=== PATIENT | female | born 1935 | race Caucasian/White ===

== ENCOUNTER 2017-03-05 21:47 | Inpatient (IN) | payer OTHER ==
[2017-03-05] MEDS ORDERED: ONDANSETRON 4 MG/2 ML VIAL IVP ONE (21:55)
[2017-03-05] MEDS ORDERED: NS 1,000 ML IV ONE (21:55)
--- NOTE | 2017-03-05 21:57 | EDPHY ---
H & P Time Seen by Provider: 03/05/17 21:56 HPI/ROS: HPI: This is an 81-year-old female who presents with Chief Complaint: Vomiting, nausea, pain Location: GI Quality: Nausea vomiting Duration: Since 3:00 p.m. (7 hr) Signs and Symptoms: no fever, + nausea, + vomiting, no hematemesis, no blood in stool, + abdominal bloating, no diarrhea, no back pain, no urinary symptoms, no vaginal bleeding/discharge, + indigestion, no chest pain, no shortness of breath Timing: Sudden, intermittent episodes Severity: [id number] Context: Patient reports that she woke up this morning just not feeling right with a little bit of confusion that cleared after 1 or 2 hr, she went to a green party this afternoon and did not eat anything. Dinner around 3:00 p.m. she started to feel nauseous, hiccups, and vomited over the course of 7 hr approximately 3 times. She feels like she has an upset stomach and indigestion. She did eat [place] food last night but her 8 as well and he has no symptoms. Status post hysterectomy/appendectomy. Denies any recent antibiotic use. Denies fever/diarrhea/chest pain/shortness of breath/ urinary symptoms. , into daughters at bedside. Modifying Factors: None Comment: ROS: see HPI Constitutional: No fever, no chills, no weight loss Eyes: No blurred vision Respiratory: No shortness of breath, no cough Cardiovascular: No chest pain, no palpitations Gastrointestinal: + nausea, + vomiting, no diarrhea, no hematemesis, no blood in stool Genitourinary: No dysuria, no blood in urine Extremities: No myalgias, no edema Neurologic: No weakness, no numbness Skin: No rashes, no petechiae Hematologic: No bruising, no bleeding MEDICAL/SURGICAL/SOCIAL HISTORY: Medical history: Generally healthy. Does not take any regular medications. Surgical history: Hysterectomy, appendectomy Social history: . CONSTITUTIONAL: Extremely pleasant and well-appearing elderly white female, awake and alert, no obvious distress HEENT: Atraumatic and normocephalic, PERRL, EOMI. Tympanic membranes clear. Oropharynx clear, no exudate and moist pink mucosa. Airway patent. No lymphadenopathy. No meningismus. Cardiovascular: Normal S1/S2, regular rate, regular rhythm, without murmur rub or gallop. PULMONARY/CHEST: Symmetrical and nontender. Clear to auscultation bilaterally. Good air movement. No accessory muscle usage. ABDOMEN: Soft, nondistended, moderate epigastric and periumbilical tenderness no rebound, no guarding, no peritoneal signs, no masses or organomegaly. No CVAT. Hypoactive bowel sounds heard x4 quadrants. EXTREMITIES: 2/2 pulses, strength 5/5, no deformities, no clubbing, no cyanosis or edema. NEUROLOGICAL: no focal neuro deficits. GCS 15. SKIN: Warm and dry, no erythema. no rash. Good capillary refill. Source: Patient Exam Limitations: No limitations Constitutional: Initial Vital Signs Temperature (C) 36.3 C 03/05/17 21:54 Heart Rate 59 L 03/05/17 21:54 Respiratory Rate 20 03/05/17 21:54 Blood Pressure 186/81 H 03/05/17 21:54 O2 Sat (%) 98 03/05/17 21:54 O2 Delivery Mode Room Air Allergies/Adverse Reactions: No Known Allergies Allergy (Unverified 03/05/17 21:53) Medical Decision Making - Diagnostics EKG Interpretation: 12 lead EKG: Indication: Abdominal pain Rhythm: Normal sinus rhythm, rate 60 beats per minute [place]: Normal Intervals: Normal QRS: Normal ST segments: Nonspecific changes T segment: flipped V1 V2 INTERPRETATION: No acute ischemia, QT prolongation The 12 lead EKG was interpreted by myself with attending. Imaging Results: Imaging Impressions Abdomen CT 03/05/17 21:56 Impression: 1. Partial small bowel obstruction involving the jejunum with apparent transition in the central low pelvis with stranding and inflammatory change in the mesentery. 2. Other chronic findings as above. Results called and discussed with Teresa Ovalle PA-C at 03/05/2017 23:36. Chest X-Ray 03/05/17 22:08 Impression: No evidence of acute cardiopulmonary abnormality. ED Course/Re-evaluation: EKG, labs, CXR, CT abdomen and pelvis scan, IV fluids, urinalysis, IV medications ordered Given 1 L normal saline, IV morphine 1 mg and IV Zofran upon arrival Vital signs reviewed and afebrile and no systemic signs. Chest x-ray my read shows no signs of opacity, effusion, pneumothorax, widened mediastinum, hiatal hernia, perforated bowel. 2335: Called by Radiology who advised that CT abdomen and pelvis shows partial small-bowel obstruction. NG tube placed for bowel decompression. Reassessed patient who reports that her nausea has subsided. She has a history of constipation intermittently at times but her last bowel movement was today at lunchtime and yesterday evening. 2345: ED decision to consult for admission. Spoke with hospitalist Dr. Espinoza who kindly agrees to admit patient. Spoke with General surgery, Nidia, who kindly agrees to consult on patient. This patient was seen under the supervision of my secondary supervising physician. I evaluated care for this patient independently. Discussed this patient with Dr. Mar who did not see the patient. Patient's presentation, labs/imaging, treatment and plan of care were discussed with secondary supervising physician. Differential Diagnosis: Abdominal pain including but not limited to appendicitis, cholecystitis, gastritis and urinary tract infection. - Data Points Laboratory Results: Laboratory Results 03/05/17 22:00 03/05/17 22:00 03/05/17 03/05/17 03/05/17 22:35 22:00 22:00 WBC RBC Hgb Hct MCV MCH MCHC RDW Plt Count MPV Neut % (Auto) Lymph % (Auto) [place] % (Auto) Eos % (Auto) Baso % (Auto) Nucleat RBC Rel Count Absolute Neuts (auto) Absolute Lymphs (auto) Absolute Monos (auto) Absolute Eos (auto) Absolute Basos (auto) Absolute Nucleated RBC Immature Gran % Immature Gran # PT 13.4 SEC SEC (12.0-15.0) INR 1.00 (0.83-1.16) APTT 26.9 SEC SEC (23.0-38.0) VBG Lactic Acid 1.4 mmol/L mmol/L (0.7-2.1) Sodium 135 mEq/L mEq/L (134-144) Potassium 4.1 mEq/L mEq/L (3.5-5.2) Chloride 97 mEq/L mEq/L (97-110) Carbon Dioxide 21 mEq/l L mEq/l (22-31) Anion Gap 17 mEq/L H mEq/L (8-16) BUN 16 mg/dL mg/dL (7-23) Creatinine 0.9 mg/dL mg/dL (0.6-1.0) Estimated GFR 60 Glucose 128 mg/dL H mg/dL (70-100) Calcium 10.5 mg/dL H mg/dL (8.5-10.4) Total Bilirubin 0.8 mg/dL mg/dL (0.1-1.4) Conjugated Bilirubin 0.3 mg/dL mg/dL (0.0-0.5) Unconjugated Bilirubin 0.5 mg/dL mg/dL (0.0-1.1) AST 23 IU/L IU/L (14-46) ALT 33 IU/L IU/L (9-52) Alkaline Phosphatase 67 IU/L IU/L (38-126) Troponin I < 0.012 ng/mL ng/mL (0.000-0.034) Total Protein 7.3 g/dL g/dL (6.3-8.2) Albumin 4.6 g/dL g/dL (3.5-5.0) Lipase 153 IU/L IU/L (23-300) 03/05/17 22:00 WBC 13.76 10^3/uL H 10^3/uL (3.80-9.50) RBC 4.70 10^6/uL 10^6/uL (4.18-5.33) Hgb 14.7 g/dL g/dL (12.6-16.3) Hct 41.5 % % (38.0-47.0) MCV 88.3 fL fL (81.5-99.8) MCH 31.3 pg pg (27.9-34.1) MCHC 35.4 g/dL g/dL (32.4-36.7) RDW 14.3 % % (11.5-15.2) Plt Count 275 10^3/uL 10^3/uL (150-400) MPV 10.6 fL fL (8.7-11.7) Neut % (Auto) 79.3 % H % (39.3-74.2) Lymph % (Auto) 14.9 % L % (15.0-45.0) [place] % (Auto) 5.1 % % (4.5-13.0) Eos % (Auto) 0.1 % L % (0.6-7.6) Baso % (Auto) 0.3 % % (0.3-1.7) Nucleat RBC Rel Count 0.0 % % (0.0-0.2) Absolute Neuts (auto) 10.91 10^3/uL H 10^3/uL (1.70-6.50) Absolute Lymphs (auto) 2.05 10^3/uL 10^3/uL (1.00-3.00) Absolute Monos (auto) 0.70 10^3/uL 10^3/uL (0.30-0.80) Absolute Eos (auto) 0.02 10^3/uL L 10^3/uL (0.03-0.40) Absolute Basos (auto) 0.04 10^3/uL 10^3/uL (0.02-0.10) Absolute Nucleated RBC 0.00 10^3/uL 10^3/uL (0-0.01) Immature Gran % 0.3 % % (0.0-1.1) Immature Gran # 0.04 10^3/uL 10^3/uL (0.00-0.10) PT INR APTT VBG Lactic Acid Sodium Potassium Chloride Carbon Dioxide Anion Gap BUN Creatinine Estimated GFR Glucose Calcium Total Bilirubin Conjugated Bilirubin Unconjugated Bilirubin AST ALT Alkaline Phosphatase Troponin I Total Protein Albumin Lipase Medications Given: Discontinued Medications Sodium Chloride (Ns) 1,000 mls @ 0 mls/hr IV EDNOW ONE; Wide Open PRN Reason: Protocol Stop: 03/05/17 21:56 Last Admin: 03/05/17 22:14 Dose: 1,000 mls Morphine Sulfate (Morphine) 1 mg IVP EDNOW ONE Stop: 03/05/17 23:01 Last Admin: 03/05/17 23:03 Dose: 1 mg Ondansetron HCl (Zofran) 4 mg IVP EDNOW ONE Stop: 03/05/17 21:56 Last Admin: 03/05/17 22:14 Dose: 4 mg Departure - Departure Disposition: [facility] Acute Clinical Impression: Small bowel obstruction, partial Condition: Fair
--- NOTE | 2017-03-05 22:26 | CPEKG ---
Heart Rate: 60 RR Interval: 1000 P-R Interval: 172 QRSD Interval: 96 QT Interval: 440 QTC Interval: 440 P [place]: 53 QRS [place]: 50 T Wave [place]: 22 EKG Severity - BORDERLINE ECG - EKG Impression: SINUS RHYTHM EKG Impression: PROBABLE LEFT ATRIAL ABNORMALITY Electronically Signed By: Aries Mar 06-Mar-2017 06:37:56
[2017-03-05 22:30] LABS: PLATELET COUNT 275 10^3/uL (150-400)
[2017-03-05 22:39] LABS: PROTIME(PATIENT) 13.4 SEC (12.0-15.0)
[2017-03-05] MEDS ORDERED: IOPAMIDOL (ISOVUE-300) 100 ML BTL ONE (23:03)
[2017-03-05] MEDS ORDERED: ONDANSETRON DISINTEGRATING 4 MG TAB PO PRN (23:41)
[2017-03-05] MEDS ORDERED: ONDANSETRON 4 MG/2 ML VIAL IVP PRN (23:41)
[2017-03-05] MEDS ORDERED: ACETAMINOPHEN 325 MG TAB PO PRN (23:41)
--- NOTE | 2017-03-06 00:27 | PDGENHP ---
History and Physical - Chief Complaint Nausea, vomiting - History of Present Illness 81 yo F w/ hx of prior abdominal surgeries presents with several hours of abdominal pain, nausea, and vomiting. Patient was in her usual state of excellent health until about 4 PM today, when she noted abdominal pain. This was followed by nausea and vomiting, which was described as non-bloody. She denies diarrhea, constipation, or recent illness. In the ED abdominal CT scan was notable for partial SBO with transition point in the pelvis. She was admitted for conservative management. Of note, patient lives independently with her and takes no medications regularly. History Information - Allergies/Home Medication List Allergies/Adverse Reactions: No Known Allergies Allergy (Unverified 03/05/17 21:53) I have personally reviewed and updated: family history, medical history - Past Medical History no pertinent PMH - Surgical History Reports: appendectomy, hysterectomy - Family History Additional family history: Asked, denies - Social History Smoking Status: Never smoked Review of Systems Review of Systems: ROS: 10pt was reviewed & negative except for what was stated in HPI & below Physical Exam Physical Exam: Temp Pulse Resp BP Pulse Ox 36.3 C 58 L 16 165/63 H 93 03/05/17 21:54 03/06/17 00:00 03/06/17 00:00 03/06/17 00:00 03/06/17 00:00 Constitutional: appears nourished, uncomfortable Eyes: PERRL, EOMI Ears, Nose, Mouth, Throat: moist mucous membranes, no oral mucosal ulcers Cardiovascular: regular rate and rhythym, no murmur, rub, or gallop Respiratory: no respiratory distress, clear to auscultation Gastrointestinal: tenderness (Diffuse, greatest in lower abdomen), other ( Hypoactive BS), No guarding, No rebound Skin: warm, normal color Musculoskeletal: full muscle strength, no muscle tenderness Neurologic: AAOx3, CN II-XII Intact Psychiatric: interacting appropriately, not anxious Lab Data & Imaging Review 03/05/17 22:00 03/05/17 22:00 WBC 13.76 10^3/uL (3.80-9.50) H 03/05/17 22:00 RBC 4.70 10^6/uL (4.18-5.33) 03/05/17 22:00 Hgb 14.7 g/dL (12.6-16.3) 03/05/17 22:00 Hct 41.5 % (38.0-47.0) 03/05/17 22:00 MCV 88.3 fL (81.5-99.8) 03/05/17 22:00 MCH 31.3 pg (27.9-34.1) 03/05/17 22:00 MCHC 35.4 g/dL (32.4-36.7) 03/05/17 22:00 RDW 14.3 % (11.5-15.2) 03/05/17 22:00 Plt Count 275 10^3/uL (150-400) 03/05/17 22:00 MPV 10.6 fL (8.7-11.7) 03/05/17 22:00 Neut % (Auto) 79.3 % (39.3-74.2) H 03/05/17 22:00 Lymph % (Auto) 14.9 % (15.0-45.0) L 03/05/17 22:00 [place] % (Auto) 5.1 % (4.5-13.0) 03/05/17 22:00 Eos % (Auto) 0.1 % (0.6-7.6) L 03/05/17 22:00 Baso % (Auto) 0.3 % (0.3-1.7) 03/05/17 22:00 Nucleat RBC Rel Count 0.0 % (0.0-0.2) 03/05/17 22:00 Absolute Neuts (auto) 10.91 10^3/uL (1.70-6.50) H 03/05/17 22:00 Absolute Lymphs (auto) 2.05 10^3/uL (1.00-3.00) 03/05/17 22:00 Absolute Monos (auto) 0.70 10^3/uL (0.30-0.80) 03/05/17 22:00 Absolute Eos (auto) 0.02 10^3/uL (0.03-0.40) L 03/05/17 22:00 Absolute Basos (auto) 0.04 10^3/uL (0.02-0.10) 03/05/17 22:00 Absolute Nucleated RBC 0.00 10^3/uL (0-0.01) 03/05/17 22:00 Immature Gran % 0.3 % (0.0-1.1) 03/05/17 22:00 Immature Gran # 0.04 10^3/uL (0.00-0.10) 03/05/17 22:00 PT 13.4 SEC (12.0-15.0) 03/05/17 22:00 INR 1.00 (0.83-1.16) 03/05/17 22:00 APTT 26.9 SEC (23.0-38.0) 03/05/17 22:00 VBG Lactic Acid 1.4 mmol/L (0.7-2.1) 03/05/17 22:35 Sodium 135 mEq/L (134-144) 03/05/17 22:00 Potassium 4.1 mEq/L (3.5-5.2) 03/05/17 22:00 Chloride 97 mEq/L (97-110) 03/05/17 22:00 Carbon Dioxide 21 mEq/l (22-31) L 03/05/17 22:00 Anion Gap 17 mEq/L (8-16) H 03/05/17 22:00 BUN 16 mg/dL (7-23) 03/05/17 22:00 Creatinine 0.9 mg/dL (0.6-1.0) 03/05/17 22:00 Estimated GFR 60 03/05/17 22:00 Glucose 128 mg/dL (70-100) H 03/05/17 22:00 Calcium 10.5 mg/dL (8.5-10.4) H 03/05/17 22:00 Total Bilirubin 0.8 mg/dL (0.1-1.4) 03/05/17 22:00 Conjugated Bilirubin 0.3 mg/dL (0.0-0.5) 03/05/17 22:00 Unconjugated Bilirubin 0.5 mg/dL (0.0-1.1) 03/05/17 22:00 AST 23 IU/L (14-46) 03/05/17 22:00 ALT 33 IU/L (9-52) 03/05/17 22:00 Alkaline Phosphatase 67 IU/L (38-126) 03/05/17 22:00 Troponin I < 0.012 ng/mL (0.000-0.034) 03/05/17 22:00 Total Protein 7.3 g/dL (6.3-8.2) 03/05/17 22:00 Albumin 4.6 g/dL (3.5-5.0) 03/05/17 22:00 Lipase 153 IU/L (23-300) 03/05/17 22:00 Imaging Review: Imaging Impressions Abdomen CT 03/05/17 21:56 Impression: 1. Partial small bowel obstruction involving the jejunum with apparent transition in the central low pelvis with stranding and inflammatory change in the mesentery. 2. Other chronic findings as above. Results called and discussed with Teresa Ovalle PA-C at 03/05/2017 23:36. Chest X-Ray 03/05/17 22:08 Impression: No evidence of acute cardiopulmonary abnormality. Assessment & Plan Assessment: 81 yo F w/ no significant PMHx presents with SBO. Plan: 1. Partial SBO - Most likely 2/2 adhesions from prior abdominal surgeries. Patient last passed gas around 7 PM on night of admission. Her abdominal exam is reassuring and CT can reveals only partial obstruction with transition point in the pelvis. - Conservative management with NPO, mIVF, and NGT placement - Surgery service consulted, appreciate assistance - Will repeat abdominal XR in the morning to monitor progression Diet - NPO, ADAT Code - Full Ppx - SCDs Dispo - Admit to observation status
[2017-03-06] MEDS: D5W 1/2 NS 1,000 ML IV SCH ×2 (01:02→08:58)
[2017-03-06 05:04] LABS: PLATELET COUNT 228 10^3/uL (150-400)
--- NOTE | 2017-03-06 09:26 | GCON ---
[f rep st] CONSULTATION DATE OF CONSULTATION: 03/06/2017 REASON FOR EVALUATION: Small bowel obstruction. Requesting physician: Teresa Ovalle PA-C HISTORY OF PRESENT ILLNESS: 81-year-old female with a significant history for a remote hysterectomy with oophorectomy, as well as appendectomy, who presents to the emergency room earlier this morning with a 1-day history of severe progressive crampy abdominal pain starting yesterday afternoon. Multiple episodes of nausea and vomiting. Her last bowel movement was yesterday. She has not passed flatus since. No prior history of similar complaints. No fevers or chills. Because of her unrelenting symptoms, she and her presented to the emergency room for further evaluation this morning. PAST MEDICAL HISTORY: TIA 2 years prior. PAST SURGICAL HISTORY: Total abdominal hysterectomy with bilateral salpingo- oophorectomy (endometriosis) and appendectomy. MEDICATIONS: Levothyroxine, vitamin D, herbal supplements. ALLERGIES: No known drug allergies. SOCIAL HISTORY: No alcohol. No tobacco. She is . FAMILY HISTORY: Noncontributory. REVIEW OF SYSTEMS: Negative 12-point review other than above. Current GI complaints only. PHYSICAL EXAMINATION: GENERAL: The patient is alert, appropriate, and comfortable. HEENT: Anicteric. LYMPH NODES: No cervical or supraclavicular lymphadenopathy. HEART: Regular, without murmurs. LUNGS: Clear bilaterally. ABDOMEN: Distended with a firm hypogastrium, with mild diffuse tenderness. No rebound or guarding. Well-healed appendectomy as well as Pfannenstiel-type incisions. SKIN: Normal. NEUROLOGIC: Alert and appropriate x3. LABORATORY DATA: White count 8, hemoglobin 13, platelets 230. Electrolytes within the reference range. CT abdomen and pelvis images were directly reviewed on PACS. Multiple probable hepatic cysts. Findings consistent with a partial small bowel obstruction, with markedly dilated proximal small bowel throughout, with a deep pelvic transition zone with decompressed distal ileum. Mild ascites present. No free air. No notable bowel wall thickening. IMPRESSION: Partial small bowel obstruction, likely adhesive in nature. RECOMMENDATIONS: The patient currently has a pediatric nasogastric tube. This will be replaced to a large-bore tube for more effective drainage. Continue conservative measures. If no clinical resolution within 48-72 hours or notable deterioration at that time, consideration for a laparoscopic exploration will be entertained at that time. The care plan and recommendations were discussed with the patient and family at bedside. /[id number]/MODL MTDD
--- NOTE | 2017-03-06 11:32 | ASMTCMCOM ---
CM Note CM Note Notes: Reviewed chart. Pt admitted w/partial SBO. She and her live at home independantly. Anticipate that she will dc home independantly when medically stable but CM will follow in case dc needs arise. Date Signed: 03/06/2017 11:31 AM Electronically Signed By:Dinah Obregon RN
[2017-03-06] MEDS: D5W NS 1,000 ML IV SCH (14:51)
--- NOTE | 2017-03-06 14:52 | HOSPPROG ---
Hospitalist Progress Note Assessment/Plan: New patient encounter 81 yo F w/ no significant PMHx presents with SBO. 1. Partial SBO - Most likely 2/2 adhesions from prior abdominal surgeries. Patient last passed gas around 7 PM on night of admission. Her abdominal exam is reassuring and CT can reveals only partial obstruction with transition point in the pelvis. - Conservative management with NPO, mIVF, and NGT placement - Surgery service consulted, appreciate assistance 2. HTN, possibly due to volume from IVF -will decrease IVF -Hydralazine PRN Diet - CLD Code - Full Ppx - SCDs Dispo - inpatient Subjective: no abd pain, no flatus. no cp or sob. elevated bp. Objective: Vital Signs Temp Pulse Resp BP Pulse Ox 36.4 C 61 20 170/72 H 93 03/06/17 11:56 03/06/17 11:56 03/06/17 11:56 03/06/17 11:56 03/06/17 11:56 Laboratory Results 03/06/17 04:31 03/06/17 04:31 03/05/17 03/06/17 03/07/17 05:59 05:59 05:59 Intake Total 1000 Balance 1000 PT 13.4 SEC (12.0-15.0) 03/05/17 22:00 INR 1.00 (0.83-1.16) 03/05/17 22:00 - Physical Exam Constitutional: no apparent distress Eyes: PERRL Ears, Nose, Mouth, Throat: moist mucous membranes, hearing normal Cardiovascular: regular rate and rhythym, no murmur, rub, or gallop, No edema Respiratory: no respiratory distress, no rales or rhonchi, clear to auscultation Gastrointestinal: distension, No normoactive bowel sounds Genitourinary: no bladder fullness Skin: warm Neurologic: AAOx3 Psychiatric: interacting appropriately, not anxious, not encephalopathic, thought process linear Lymph, Heme, Immunologic: No petechiae ICD10 Worksheet Patient Problems: Problems Problem Status Onset Small bowel obstruction, partial Acute
--- NOTE | 2017-03-06 15:19 | PDMN ---
Medical Necessity Medical necessity: C/M review: Patient meets INPT criteria under MCG M-210 Intestinal obstruction: Acute and persistent partial small bowel obstruction on CT, xray, likely secondary to adhesions from prior surgeries, abdominal pain , nausea, hypertension, requiring NG tube placement in ED, ongoing NG tube to suction, NPO, IV fluids, IV Morphine, IV Zofran, comorbid history of total abdominal hysterectomy with BSO and appendectomy. MD anticipates > 2 MV LOS for ongoing med nec for eval and TX of above.
[2017-03-06] MEDS: hydrALAZINE 20 MG/ML VIAL IVP PRN (17:24)
[2017-03-06] MEDS: KETOROLAC 15 MG/1 ML SDV IVP PRN (20:35)
[2017-03-07] MEDS: D5W NS 1,000 ML IV SCH ×3 (00:57→23:02)
--- NOTE | 2017-03-07 09:33 | SOAPPROG ---
SOAP Progress Note Assessment/Plan: Assessment:no overnight issues. less pain and nausea. no flatus. avss. comfortable. NG gastric. abd less dist, soft, nontender. pelvic firmness resolved. KUB with persistent SBO. PSBO - cont NG drainage. Murguia out. Ambulate. Plan: 03/07/17 09:31 Objective: Vital Signs Temp Pulse Resp BP Pulse Ox 36.9 C 57 L 16 181/76 H 98 03/07/17 07:31 03/07/17 07:31 03/07/17 07:31 03/07/17 07:31 03/07/17 07:31 Laboratory Results 03/07/17 05:16 03/06/17 03/07/17 03/08/17 05:59 05:59 05:59 Intake Total 125 Output Total 1475 Balance -1350 PT 13.4 SEC (12.0-15.0) 03/05/17 22:00 INR 1.00 (0.83-1.16) 03/05/17 22:00 ICD10 Worksheet Patient Problems: Problems Problem Status Onset Small bowel obstruction, partial Acute
[2017-03-07] MEDS: hydrALAZINE 20 MG/ML VIAL IVP PRN (09:38)
[2017-03-07] MEDS: KETOROLAC 15 MG/1 ML SDV IVP PRN (11:28)
[2017-03-07] MEDS: LEVOTHYROXINE 137 MCG TAB PO SCH (13:30)
[2017-03-07] MEDS ORDERED: NS 250 ML IV ONE (15:15)
--- NOTE | 2017-03-07 18:53 | HOSPPROG ---
Hospitalist Progress Note Assessment/Plan: 1. Partial SBO - Most likely 2/2 adhesions from prior abdominal surgeries. -CT can reveals partial obstruction with transition point in the pelvis. - Conservative management with NPO, IVF, and NGT placement - Surgery service consulted, appreciate assistance (Dr Javier) 2. HTN -Hydralazine PRN Diet - CLD for comfort as NGT to suction Code - Full Ppx - SCDs Dispo > 2 mdnts because of IVF, resolution of SBO, may need surgical intervention Subjective: Feels a bit better today, less pain. Daughter and DEEPIKA in room- lots of questions. Denies CP/SOB. Feels weak. Objective: Vital Signs Temp Pulse Resp BP Pulse Ox 98.8 F 64 16 154/77 H 93 03/07/17 14:59 03/07/17 14:59 03/07/17 14:59 03/07/17 14:59 03/07/17 14:59 Laboratory Results 03/07/17 05:16 03/06/17 03/07/17 03/08/17 11:59 11:59 11:59 Intake Total 125 60 Output Total 1675 800 Balance -1550 -740 PT 13.4 SEC (12.0-15.0) 03/05/17 22:00 INR 1.00 (0.83-1.16) 03/05/17 22:00 - Time Spent With Patient Time Spent with Patient: greater than 35 minutes Time Spent with Patient: Greater than 35 minutes spent on this patients care, greater than 50% of time spent counseling, educating, and coordinating care regarding the above mentioned plan. - Pending Discharge Pending Discharge Within 24 Hours: No - Physical Exam Constitutional: no apparent distress, appears nourished Ears, Nose, Mouth, Throat: moist mucous membranes Cardiovascular: regular rate and rhythym, No edema Respiratory: no respiratory distress, no rales or rhonchi, clear to auscultation Gastrointestinal: tenderness (mild throughout), distension, other (hypoactive bowel sounds), No guarding, No rebound Skin: warm Neurologic: other (non focal) Psychiatric: interacting appropriately, not anxious, not encephalopathic, thought process linear, No poor insight, No poor judgement ICD10 Worksheet Patient Problems: Problems Problem Status Onset Small bowel obstruction, partial Acute
[2017-03-08] MEDS: LEVOTHYROXINE 137 MCG TAB PO SCH (04:57)
[2017-03-08] MEDS: KETOROLAC 15 MG/1 ML SDV IVP PRN (06:47)
[2017-03-08] MEDS ORDERED: BISACODYL 10 MG SUPP PR PRN (09:31)
[2017-03-08] MEDS ORDERED: LACTULOSE 20 GM/30 ML UDCUP PO PRN (09:31)
[2017-03-08] MEDS ORDERED: MAGNESIUM HYDROXIDE 30 ML UDCUP PO PRN (09:31)
[2017-03-08] MEDS ORDERED: POLYETHYLENE GLYCOL 3350 17 GM PKT PO PRN (09:31)
--- NOTE | 2017-03-08 11:01 | SOAPPROG ---
SOAP Progress Note Assessment/Plan: Assessment: no pain at present - uncomfortable with clamping during ambulation yesterday. no flatus or bm. avss. comfortable. abd dist, soft, nontender. NG gastrobilious. KUB - increased SB distention. PSBO - clinically not progressing. Recommend lap SHYAM this evening. care plan reviewed with patient/ family/nursing staff. risks, benefits and expectations reviewed. no overnight issues. less pain and nausea. no flatus. avss. comfortable. NG gastric. abd less dist, soft, nontender. pelvic firmness resolved. KUB with persistent SBO. PSBO - cont NG drainage. Murguia out. Ambulate. Plan: 03/07/17 09:31 03/08/17 10:59 Objective: Vital Signs Temp Pulse Resp BP Pulse Ox 37.3 C 59 L 14 156/70 H 93 03/08/17 10:50 03/08/17 10:50 03/08/17 10:50 03/08/17 10:50 03/08/17 10:50 Laboratory Results 03/08/17 05:16 03/08/17 05:16 03/07/17 03/08/17 03/09/17 05:59 05:59 05:59 Intake Total 125 1275 Output Total 1475 1675 Balance -1350 -400 PT 13.4 SEC (12.0-15.0) 03/05/17 22:00 INR 1.00 (0.83-1.16) 03/05/17 22:00 ICD10 Worksheet Patient Problems: Problems Problem Status Onset Small bowel obstruction, partial Acute
[2017-03-08] MEDS: POTASSIUM Cl (KCl) 10 MEQ in NS 100 ML IV SCH ×4 (11:44→16:10)
[2017-03-08] MEDS: D5W 1/2 NS W/ 20 KCl/L 1,000 ML IV SCH (11:44)
[2017-03-08] MEDS ORDERED: BUPIVACAINE 0.5% 30 ML SDV ONE (15:14)
[2017-03-08] MEDS ORDERED: CEFAZOLIN 1 GM/DEXTROSE/50 ML BAG IV ONE (16:07)
[2017-03-08] MEDS: POTASSIUM Cl (KCl) 100 ML IV SCH ×3 (16:08→16:11)
[2017-03-08] MEDS ORDERED: LR 1,000 ML IV ONE (16:33)
--- NOTE | 2017-03-08 16:51 | PDANEPAE ---
ANE History of Present Illness SHYAM ANE Past Medical History - Cardiovascular History Hx Hypertension: No Hx Arrhythmias: No Hx Chest Pain: No Hx Coronary Artery / Peripheral Vascular Disease: No Hx CHF / Valvular Disease: No Hx Palpitations: No - Pulmonary History Hx COPD: No Hx Asthma/Reactive Airway Disease: No Hx Recent Upper Respiratory Infection: No Hx Oxygen in Use at Home: No Hx Sleep Apnea: No Sleep Apnea Screening Result - Last Documented: Negative - Endocrine History Hx Diabetes: No Hypothyroid: Yes Hyperthyroid: No Obesity: no - Renal History Hx Renal Disorders: No - Liver History Hx Hepatic Disorders: No - Neurological & Psychiatric Hx Hx Neurological and Psychiatric Disorders: Yes Neurological / Psychiatric History Comment: TIA - Chronic Pain History Chronic Pain: No ANE Review of Systems Review of systems is: negative Review of Systems: ANE Patient History - Allergies Allergies/Adverse Reactions: No Known Allergies Allergy (Unverified 03/05/17 21:53) - Home Medications Home Medications: Cholecalciferol Vit D3 [Vitamin D3 (*)] 1,000 units PO DAILY 03/06/17 [Last Taken 03/05/17] Herbals/Supplements -Info Only 1 ea PO DAILY 03/06/17 [Last Taken 03/05/17] Levothyroxine [Synthroid 137 mcg (*)] 137 mcg PO DAILY06 03/06/17 [Last Taken ] - NPO status NPO Status: no food or drink >8 hours NPO Since - Liquids (Date): 03/08/17 NPO Since - Liquids (Time): 12:00 NPO Since - Solids (Date): 03/05/17 - Anes Hx Anes Hx: no prior problems - Smoking Hx Smoking Status: Never smoked - Alcohol Use Alcohol Use: Occasionally (1/day) - Family Anes Hx Family Anes Hx: none ANE Labs/Vital Signs - Labs Result Diagrams: 03/08/17 05:16 03/08/17 05:16 - Vital Signs Vital Signs: reviewed preoperatively; see RN documention for details Blood Pressure: 188/77 Heart Rate: 59 Respiratory Rate: 16 O2 Sat (%): 90 Height: 157.48 cm Weight: 54.431 kg ANE Physical Exam - Airway Neck exam: decreased ROM Mallampati Score: Class 2 Mouth exam: normal dental/mouth exam - Pulmonary Pulmonary: no respiratory distress - Cardiovascular Cardiovascular: regular rate and rhythym - ASA Status ASA Status: III, E ANE Anesthesia Plan Anesthesia Plan: general endotracheal anesthesia
[2017-03-08] MEDS ORDERED: PROPOFOL 200 MG/20 ML VIAL ONE (17:46)
[2017-03-08] MEDS ORDERED: ROCURONIUM 50 MG/5 ML VIAL ONE (17:46)
[2017-03-08] MEDS ORDERED: LIDOCAINE 2% 5 ML SDV ONE (17:46)
[2017-03-08] MEDS ORDERED: fentaNYL 100 MCG/2 ML INJ ONE ×4 (17:46→20:27)
--- NOTE | 2017-03-08 17:47 | HOSPPROG ---
Hospitalist Progress Note Assessment/Plan: 1. Partial SBO - Most likely 2/2 adhesions from prior abdominal surgeries -CT can reveals partial obstruction with transition point in the pelvis -abd xrays unchanged with conservative management with NPO, IVF, and NGT placement - discussed care plan with Dr Javier, to surgery this PM 2. HTN -Hydralazine PRN 3. Anemia -likely dilution -follow post op 4. Hypokalemia -add to IVF - recheck in AM Diet - CLD for comfort as NGT to suction Code - Full Ppx - SCDs Dispo > 2 mdnts because of IVF, resolution of SBO pending surgical intervention today Subjective: Says more painful today. Small BM yesterday. No n/v/cp/SOB. Discussed careplan with her, daughter, . Objective: Vital Signs Temp Pulse Resp BP Pulse Ox 98.4 F 59 L 16 188/77 H 90 L 03/08/17 16:10 03/08/17 16:52 03/08/17 16:52 03/08/17 16:52 03/08/17 16:52 Laboratory Results 03/08/17 05:16 03/08/17 05:16 03/07/17 03/08/17 03/09/17 11:59 11:59 11:59 Intake Total 125 1275 Output Total 1675 1475 Balance -1550 -200 PT 13.4 SEC (12.0-15.0) 03/05/17 22:00 INR 1.00 (0.83-1.16) 03/05/17 22:00 - Time Spent With Patient Time Spent with Patient: greater than 25 minutes Time Spent with Patient: Greater than 25 minutes spent on this patients care, greater than 50% of time spent counseling, educating, and coordinating care regarding the above mentioned plan. - Pending Discharge Pending Discharge Within 24 Hours: No - Physical Exam Constitutional: no apparent distress, appears nourished Ears, Nose, Mouth, Throat: moist mucous membranes Cardiovascular: regular rate and rhythym, No edema Respiratory: no respiratory distress, no rales or rhonchi, clear to auscultation Gastrointestinal: tenderness, distension (throughout, increased from yesterday) , other (hyperactive BS), No guarding, No rebound Skin: warm Psychiatric: interacting appropriately, not anxious, not encephalopathic, thought process linear ICD10 Worksheet Patient Problems: Problems Problem Status Onset Small bowel obstruction, partial Acute
[2017-03-08] MEDS ORDERED: SUGAMMADEX SODIUM 200 MG/2 ML VIAL IVP ONE (18:24)
[2017-03-08] MEDS ORDERED: ONDANSETRON 4 MG/2 ML VIAL ONE (18:24)
[2017-03-08] MEDS ORDERED: ONDANSETRON 4 MG/2 ML VIAL IVP PRN (19:57)
[2017-03-08] MEDS ORDERED: NALOXONE HCL 0.4 MG/ML INJ IVP PRN (19:57)
[2017-03-08] MEDS ORDERED: PROMETHAZINE HCL 25 MG/ML INJ IVP PRN (19:57)
[2017-03-08] MEDS ORDERED: HYDROmorphONE/DILAUDID 1 MG/ML INJ ONE (20:27)
[2017-03-08] MEDS: HYDROmorphONE/DILAUDID 1 MG/ML INJ IVP PRN ×3 (20:30→22:17)
[2017-03-08] MEDS: fentaNYL 100 MCG/2 ML INJ IVP PRN ×2 (20:30→21:15)
--- NOTE | 2017-03-08 20:31 | POSTOPPROG ---
Post Op Note Date of Operation: 03/08/17 Surgeon: Keegan Javier Anesthesiologist: Bora Moran Anesthesia: GET(General Endotracheal) Pre-op Diagnosis: SBO Post-op Diagnosis: Same Procedure: Lap SHYAM, SBR Findings: Solitary adhesion with multi-site full thickness necrosis, lg ascites Inf/Abcess present in the surg proc area at time of surgery?: Yes Depth: Organ Space EBL: Minimal Total fluids administered: 900cc Specimen(s): small bowel
--- NOTE | 2017-03-08 20:38 | POSTANESTH ---
Post Anesthetic Evaluation Cardiovascular Status: Normal, Stable Respiratory Status: Tx Decrease in SpO2 Level of Consciousness/Mental Status: Mildly Sleepy, Arousable Pain Control: Adequate, Prn Tx Ordered Nausea/Vomiting Control: Adequate, Prn Tx Ordered Complications Possibly Related to Anesthesia: None Noted
[2017-03-08] MEDS: SENNOSIDES/DOCUSATE SODIUM TAB PO SCH (21:00)
--- NOTE | 2017-03-08 23:18 | GOP ---
[f rep st] OPERATIVE REPORT DATE OF OPERATION: 03/08/2017 SURGEON: Keegan Javier MD ANESTHESIA: General. ANESTHESIOLOGIST: Dr. Moran. PREOPERATIVE DIAGNOSIS: Small bowel obstruction. POSTOPERATIVE DIAGNOSIS: Small bowel obstruction. PROCEDURE PERFORMED: Laparoscopic lysis of adhesion with small bowel resection and over-sewing of multisite perforation. FINDINGS: Focally ischemic multisite perforation. INDICATIONS: 81-year-old female admitted with an adhesive small bowel obstruction. She failed to progress with nasogastric decompression. She is taken to the operating this evening for laparoscopic exploration. Surgical risks and benefits were explained of bleeding, infection, open conversion, bowel injury, indications for resection, anastomotic leak, as well as recurrence. All questions were answered. She desires to proceed. DESCRIPTION OF PROCEDURE: After general anesthesia was induced, the abdomen was preinjected with 0.5% Marcaine with epinephrine. A Veress needle was placed in the supraumbilical position. This was followed by a 5 mm trocar placement as well as 2 left lower quadrant 5 mm ports. The abdomen disclosed a large volume of slightly bilious ascites. There were multiple areas of multiple green mucoid flecks scattered throughout the small bowel mesentery. The small bowel was run from the ileocecal valve toward the ligament of Treitz. Within the distal ileum was a solitary, firm thick adhesive band creating a point of obstruction. This band was sharply lysed allowing the bowel to be all detorsed around the level of the obstruction. The small bowel was hemorrhagic with varying degrees of ischemia for a notable distance of approximately 20 cm. At the cicatricial point of obstruction was an area of full-thickness necrosis with areas of small exuding succus entericus. The midline incision was partially extended. A wound protector was applied. The small bowel was brought ex vivo. The small bowel was initially transected back to the initial chosen sites of viable intestine. The mesentery was taken between clamps and ties. A stapled anastomosis was created with a NATHALIE 75 and the small bowel was further run. Immediately distal to the anastomosis were 2 additional areas of punctate hemorrhage with healthy-appearing surrounding bowel. These were felt amenable to a primary closure, which was done in layered fashion, the 2 defects being oversewn in a longitudinal fashion. The small bowel was returned back to the abdominal cavity. The abdomen was copiously irrigated until clear. The midline fascia was closed and the scope was replaced in the abdominal cavity. The bowel was again run. There were areas of unsatisfactory apparent ischemia at the stapled hookup. The midline incision was re-extended and the anastomosis was re-created at multiple centimeters both proximally and distally where the viability of the bowel appeared much healthier and satisfactory in appearance. This anastomosis was also done in stapled fashion. Excellent luminal patency was noted. Good bleeding was noted from all cut edges with healthy pink adventitia throughout. The bowel was again returned back to the abdominal cavity. The midline fascia was closed with a running Vicryl suture. The wounds were closed with Monocryl suture followed by Dermabond. The patient was extubated and taken to Recovery uneventfully. /[id number]/MODL MTDD
[2017-03-09] MEDS: cefOXitin SODIUM 1 GM in STERILE WATER INJ 10.5 ML IV SCH ×5 (01:47→23:17)
[2017-03-09] MEDS: HYDROmorphONE/DILAUDID 1 MG/ML INJ IVP PRN (03:13)
[2017-03-09] MEDS: D5W 1/2 NS W/ 20 KCl/L 1,000 ML IV SCH ×2 (03:15→11:48)
[2017-03-09 06:05] LABS: PLATELET COUNT 173 10^3/uL (150-400)
[2017-03-09] MEDS: LEVOTHYROXINE 137 MCG TAB PO SCH (06:10)
[2017-03-09] MEDS: SENNOSIDES/DOCUSATE SODIUM TAB PO SCH ×2 (07:15→20:35)
--- NOTE | 2017-03-09 08:00 | SOAPPROG ---
SOAP Progress Note Assessment/Plan: Assessment: no overnight issues s/p lap SBR. pain controlled - surgical discomfort only. avss. abd dist, soft. incis clean. labs ok. doing well. freeman out. ivf. cont cefoxitin. ambulate. may shower. ng out hopefully 1-2 days. no pain at present - uncomfortable with clamping during ambulation yesterday. no flatus or bm. avss. comfortable. abd dist, soft, nontender. NG gastrobilious. KUB - increased SB distention. PSBO - clinically not progressing. Recommend lap SHYAM this evening. care plan reviewed with patient/ family/nursing staff. risks, benefits and expectations reviewed. no overnight issues. less pain and nausea. no flatus. avss. comfortable. NG gastric. abd less dist, soft, nontender. pelvic firmness resolved. KUB with persistent SBO. PSBO - cont NG drainage. Freeman out. Ambulate. Plan: 03/07/17 09:31 03/08/17 10:59 03/09/17 07:57 Objective: Vital Signs Temp Pulse Resp BP Pulse Ox 36.6 C 71 16 160/83 H 94 03/09/17 03:07 03/09/17 07:47 03/09/17 07:47 03/09/17 03:07 03/09/17 07:47 Laboratory Results 03/09/17 05:56 03/09/17 05:56 03/08/17 03/09/17 03/10/17 05:59 05:59 05:59 Intake Total 1275 1702.5 297 Output Total 1675 1130 Balance -400 572.5 297 PT 13.4 SEC (12.0-15.0) 03/05/17 22:00 INR 1.00 (0.83-1.16) 03/05/17 22:00 ICD10 Worksheet Patient Problems: Problems Problem Status Onset Small bowel obstruction, partial Acute
[2017-03-09] MEDS: KETOROLAC 15 MG/1 ML SDV IVP PRN (09:15)
--- NOTE | 2017-03-09 11:11 | ASMTCMCOM ---
CM Note CM Note Notes: Pt cleared by PT for home when medically stable. Per RN, pt has significant family assistance and was independent prior to admission. CM available for any changes. DC Plan: Home w/family Date Signed: 03/09/2017 11:11 AM Electronically Signed By:Joleen Foley RN
[2017-03-09] MEDS ORDERED: CEPACOL LOZENGE PO PRN (15:36)
--- NOTE | 2017-03-09 16:30 | HOSPPROG ---
Hospitalist Progress Note Assessment/Plan: 1. Partial SBO, s/p partial SB resection yesterday -continue with NPO, IVF, and NGT (open to suction, with clear diet for comfort) -tried to contact Dr Javier re need for TPN if stays NPO much longer due to low BMI 2. HTN -Hydralazine PRN 3. Anemia -likely dilutional/post op -stable 4. Hypokalemia -replacing in IVF Diet - CLD for comfort as NGT to suction Code - Full Ppx - SCDs Dispo > 2 mdnts because of IVF, resolution of SBO pending surgical intervention today Subjective: Feels OK this AM, says pain ok with meds. Feels good to have broth! Denies CP/SOB. and daughter in room. Objective: Vital Signs Temp Pulse Resp BP Pulse Ox 98.9 F 80 16 149/72 H 92 03/09/17 14:39 03/09/17 14:39 03/09/17 14:39 03/09/17 14:39 03/09/17 14:39 Laboratory Results 03/09/17 05:56 03/09/17 05:56 03/08/17 03/09/17 03/10/17 11:59 11:59 11:59 Intake Total 1275 1999.5 Output Total 1475 1350 100 Balance -200 649.5 -100 PT 13.4 SEC (12.0-15.0) 03/05/17 22:00 INR 1.00 (0.83-1.16) 03/05/17 22:00 - Physical Exam Constitutional: no apparent distress Eyes: anicteric sclera Ears, Nose, Mouth, Throat: moist mucous membranes Cardiovascular: regular rate and rhythym, no murmur, rub, or gallop, No edema Respiratory: no respiratory distress, no rales or rhonchi, clear to auscultation Gastrointestinal: tenderness (appropriate), other (hypoactive BS), No rebound, No distension Skin: warm Psychiatric: interacting appropriately, not anxious, not encephalopathic, thought process linear ICD10 Worksheet Patient Problems: Problems Problem Status Onset Small bowel obstruction, partial Acute
[2017-03-10] MEDS: LEVOTHYROXINE 137 MCG TAB PO SCH (06:31)
[2017-03-10] MEDS: cefOXitin SODIUM 1 GM in STERILE WATER INJ 10.5 ML IV SCH ×3 (07:18→17:55)
[2017-03-10] MEDS ORDERED: HYDROCODONE/APAP 5/325 TAB PO PRN (08:14)
--- NOTE | 2017-03-10 08:18 | SOAPPROG ---
SOAP Progress Note Assessment/Plan: Assessment: rough night secondary to secretions/tube discomfort. surg site pain only. no flatus, large rumbling. afebrile. bp 170's. comfortable. NG clear/gastric. abd dist, soft, approp incis tenderness. pod#2 s/p lap SBR. doing well overall - mild ileus. NG removed. clears. ambulate. HTN - will prob improve with NG out/pain control. cont ABX short term for isch bowel perf - will not need on discharge. no overnight issues s/p lap SBR. pain controlled - surgical discomfort only. avss. abd dist, soft. incis clean. labs ok. doing well. freeman out. ivf. cont cefoxitin. ambulate. may shower. ng out hopefully 1-2 days. no pain at present - uncomfortable with clamping during ambulation yesterday. no flatus or bm. avss. comfortable. abd dist, soft, nontender. NG gastrobilious. KUB - increased SB distention. PSBO - clinically not progressing. Recommend lap SHYAM this evening. care plan reviewed with patient/ family/nursing staff. risks, benefits and expectations reviewed. no overnight issues. less pain and nausea. no flatus. avss. comfortable. NG gastric. abd less dist, soft, nontender. pelvic firmness resolved. KUB with persistent SBO. PSBO - cont NG drainage. Freeman out. Ambulate. Plan: 03/07/17 09:31 03/08/17 10:59 03/09/17 07:57 03/10/17 08:15 Objective: Vital Signs Temp Pulse Resp BP Pulse Ox 36.6 C 73 16 175/79 H 91 L 03/10/17 07:34 03/10/17 07:34 03/10/17 07:34 03/10/17 07:34 03/10/17 07:34 Laboratory Results 03/09/17 05:56 03/09/17 05:56 03/09/17 03/10/17 03/11/17 05:59 05:59 05:59 Intake Total 1702.5 1293 Output Total 1130 1320 Balance 572.5 -27 PT 13.4 SEC (12.0-15.0) 03/05/17 22:00 INR 1.00 (0.83-1.16) 03/05/17 22:00 ICD10 Worksheet Patient Problems: Problems Problem Status Onset Small bowel obstruction, partial Acute
[2017-03-10] MEDS: SENNOSIDES/DOCUSATE SODIUM TAB PO SCH ×2 (08:48→19:53)
[2017-03-10] MEDS: KETOROLAC 15 MG/1 ML SDV IVP PRN (08:54)
--- NOTE | 2017-03-10 11:27 | HOSPPROG ---
Hospitalist Progress Note Assessment/Plan: Patient is an 81-year-old female whose had prior abdominal surgeries. She presented to the emergency room with abdominal pain nausea and vomiting. In the emergency department she had a CT scan that was notable for partial small bowel obstruction with transition point in the pelvis. She had surgery with Dr. Javier. Today is my 1st encounter with the patient. Chart reviewed. *Partial SBO -status post lysis of adhesions and bowel section on March 08 -NG removed this morning and patient is tolerating clear liquids -she has positive bowel sounds * hypoalbuminemia -due to poor intake * hypertension -BP elevated this morning * anemia -labs stable today * hypokalemia -stable * DVT prophylaxis -will discuss with surgical team Subjective: Patient has no c/o pain, feeling overall well. Objective: Vital Signs Temp Pulse Resp BP Pulse Ox 36.6 C 73 16 175/79 H 91 L 03/10/17 07:34 03/10/17 07:34 03/10/17 07:34 03/10/17 07:34 03/10/17 07:34 Laboratory Results 03/09/17 05:56 03/09/17 05:56 03/09/17 03/10/17 03/11/17 05:59 05:59 05:59 Intake Total 1702.5 1293 Output Total 1130 1320 Balance 572.5 -27 PT 13.4 SEC (12.0-15.0) 03/05/17 22:00 INR 1.00 (0.83-1.16) 03/05/17 22:00 - Physical Exam Constitutional: no apparent distress, not in pain Eyes: PERRL Ears, Nose, Mouth, Throat: hearing normal Cardiovascular: regular rate and rhythym Respiratory: no respiratory distress Gastrointestinal: No normoactive bowel sounds (hypoactive, but present in both upper quadrants) Skin: warm Neurologic: AAOx3 Psychiatric: interacting appropriately, not anxious ICD10 Worksheet Patient Problems: Problems Problem Status Onset Small bowel obstruction, partial Acute
[2017-03-10] MEDS: D5W 1/2 NS W/ 20 KCl/L 1,000 ML IV SCH (12:10)
[2017-03-11] MEDS: cefOXitin SODIUM 1 GM in STERILE WATER INJ 10.5 ML IV SCH ×3 (00:12→11:51)
[2017-03-11] MEDS: LEVOTHYROXINE 137 MCG TAB PO SCH ×2 (05:46→06:29)
[2017-03-11] MEDS: KETOROLAC 15 MG/1 ML SDV IVP PRN (05:50)
[2017-03-11] MEDS: D5W 1/2 NS W/ 20 KCl/L 1,000 ML IV SCH (06:33)
--- NOTE | 2017-03-11 08:29 | SOAPPROG ---
SOAP Progress Note Assessment/Plan: Assessment: good night. small flatus. no current nausea. small appetite. voiding increased last lucien. avss. abd dist, soft, approp tender. no erythema. slow progress. reg diet. dc IVF. stop abx. home possibly in am. rough night secondary to secretions/tube discomfort. surg site pain only. no flatus, large rumbling. afebrile. bp 170's. comfortable. NG clear/gastric. abd dist, soft, approp incis tenderness. pod#2 s/p lap SBR. doing well overall - mild ileus. NG removed. clears. ambulate. HTN - will prob improve with NG out/pain control. cont ABX short term for isch bowel perf - will not need on discharge. no overnight issues s/p lap SBR. pain controlled - surgical discomfort only. avss. abd dist, soft. incis clean. labs ok. doing well. freeman out. ivf. cont cefoxitin. ambulate. may shower. ng out hopefully 1-2 days. no pain at present - uncomfortable with clamping during ambulation yesterday. no flatus or bm. avss. comfortable. abd dist, soft, nontender. NG gastrobilious. KUB - increased SB distention. PSBO - clinically not progressing. Recommend lap SHYAM this evening. care plan reviewed with patient/ family/nursing staff. risks, benefits and expectations reviewed. no overnight issues. less pain and nausea. no flatus. avss. comfortable. NG gastric. abd less dist, soft, nontender. pelvic firmness resolved. KUB with persistent SBO. PSBO - cont NG drainage. Freeman out. Ambulate. Plan: 03/07/17 09:31 03/08/17 10:59 03/09/17 07:57 03/10/17 08:15 03/11/17 08:26 Objective: Vital Signs Temp Pulse Resp BP Pulse Ox 36.6 C 64 16 153/78 H 92 03/11/17 07:33 03/11/17 07:33 03/11/17 07:33 03/11/17 07:33 03/11/17 07:33 Laboratory Results 03/09/17 05:56 03/09/17 05:56 03/10/17 03/11/17 03/12/17 05:59 05:59 05:59 Intake Total 1293 620.5 Output Total 1320 Balance -27 620.5 PT 13.4 SEC (12.0-15.0) 03/05/17 22:00 INR 1.00 (0.83-1.16) 03/05/17 22:00 ICD10 Worksheet Patient Problems: Problems Problem Status Onset Small bowel obstruction, partial Acute
[2017-03-11] MEDS: SENNOSIDES/DOCUSATE SODIUM TAB PO SCH ×2 (08:54→21:23)
--- NOTE | 2017-03-11 12:08 | ASMTCMCOM ---
CM Note CM Note Notes: Chart reviewed.Met with patient and her Per therapies HHC recommended. patient is weak and they are agreeable to C. They have gregory so referral to [facility], confirmed address and phone number. Awaiting response. CM to follow. Date Signed: 03/11/2017 12:01 PM Electronically Signed By:Joyce Dang RN
--- NOTE | 2017-03-11 12:49 | HOSPPROG ---
Hospitalist Progress Note Assessment/Plan: Patient is an 81-year-old female whose had prior abdominal surgeries. She presented to the emergency room with abdominal pain nausea and vomiting. In the emergency department she had a CT scan that was notable for partial small bowel obstruction with transition point in the pelvis. She had surgery with Dr. Javier. Met with the patient and family with Dr Javier. *Partial SBO -status post lysis of adhesions and bowel section on March 08 -slowly improving, better today than yesterday -had a bowel movement today * hypoalbuminemia -due to poor intake * hypertension -BP elevated this morning * anemia -labs stable today * hypokalemia -stable * DVT prophylaxis -athrombic pumps, ambulating frequently Subjective: Patient is c/o some abd distention Objective: Vital Signs Temp Pulse Resp BP Pulse Ox 37.2 C 66 16 152/84 H 94 03/11/17 10:56 03/11/17 10:56 03/11/17 10:56 03/11/17 10:56 03/11/17 10:56 Laboratory Results 03/09/17 05:56 03/09/17 05:56 03/10/17 03/11/17 03/12/17 05:59 05:59 05:59 Intake Total 1293 620.5 Output Total 1320 200 Balance -27 620.5 -200 PT 13.4 SEC (12.0-15.0) 03/05/17 22:00 INR 1.00 (0.83-1.16) 03/05/17 22:00 - Physical Exam Constitutional: uncomfortable Eyes: PERRL Ears, Nose, Mouth, Throat: hearing normal Cardiovascular: regular rate and rhythym Respiratory: no respiratory distress Gastrointestinal: distension (slight), No normoactive bowel sounds (hypoactive) Skin: warm Musculoskeletal: full muscle strength Neurologic: AAOx3 Psychiatric: interacting appropriately ICD10 Worksheet Patient Problems: Problems Problem Status Onset Small bowel obstruction, partial Acute
[2017-03-12] MEDS: LEVOTHYROXINE 137 MCG TAB PO SCH (05:35)
[2017-03-12] MEDS ORDERED: PROTOCOL POTASSIUM 1 DOSE MISC PRN (07:58)
[2017-03-12] MEDS ORDERED: POTASSIUM CL 10 MEQ TAB PO ONE ×2 (08:17→19:34)
[2017-03-12] MEDS: SENNOSIDES/DOCUSATE SODIUM TAB PO SCH ×2 (09:14→20:33)
--- NOTE | 2017-03-12 09:33 | HOSPPROG ---
Hospitalist Progress Note Assessment/Plan: Patient is an 81-year-old female whose had prior abdominal surgeries. She presented to the emergency room with abdominal pain nausea and vomiting. In the emergency department she had a CT scan that was notable for partial small bowel obstruction with transition point in the pelvis. She had surgery with Dr. Javier. *Partial SBO -status post lysis of adhesions and bowel section on March 08 -slowly improving, -had a bowel movement *hypokalemia -had multiple bouts of diarrhea yesterday -k protocol *Hyponatremia -needs more solute intake, has been mainly taking cl liquids * hypoalbuminemia -due to poor intake * hypertension -BP elevated during her stay -low dose Norvasc * anemia -labs stable today * hypokalemia -stable * DVT prophylaxis -athrombic pumps, ambulating frequently *Plan: patient is not feeling well enough to go home today, recheck labs in a.m. Subjective: Evelin is too tired and feels poorly for dc. Objective: Vital Signs Temp Pulse Resp BP Pulse Ox 36.9 C 61 14 170/62 H 91 L 03/12/17 07:40 03/12/17 07:40 03/12/17 07:40 03/12/17 08:00 03/12/17 07:40 Laboratory Results 03/09/17 05:56 03/12/17 06:14 03/11/17 03/12/17 03/13/17 05:59 05:59 05:59 Intake Total 620.5 235.5 Output Total 200 Balance 620.5 35.5 PT 13.4 SEC (12.0-15.0) 03/05/17 22:00 INR 1.00 (0.83-1.16) 03/05/17 22:00 - Physical Exam Constitutional: not in pain, uncomfortable Eyes: PERRL Ears, Nose, Mouth, Throat: hearing normal Cardiovascular: regular rate and rhythym Respiratory: no respiratory distress Gastrointestinal: normoactive bowel sounds, soft, non-tender abdomen Skin: warm Musculoskeletal: generalized weakness Neurologic: AAOx3 Psychiatric: interacting appropriately ICD10 Worksheet Patient Problems: Problems Problem Status Onset Small bowel obstruction, partial Acute
--- NOTE | 2017-03-12 11:33 | SOAPPROG ---
SOAP Progress Note Assessment/Plan: Assessment/Plan: Postoperative 4. Status post exploratory laparotomy lysis of adhesions for small-bowel obstruction the patient had enterotomy performed for ischemia/ perforation. NG tube was removed over the last 48 hr she is tolerating clear liquid diet. Bowel movement today good urinary output passing flatus. By signs stable White blood cell count normalized. Hyponatremic with a sodium of 130. Inter rate and rhythm Clear to auscultation Abdomen softly distended is in clean dry intact minimal amount of ecchymosis No peripheral edema Impression hyponatremia Small-bowel obstruction with ischemia and perforation status post enterectomy Keep today. Likely fluid restriction with sodium rich all fluid intake. Anticipate discharge in the next 24-48 hours. Sitter rehab if patient remains weak 03/12/17 11:30 Objective: Vital Signs Temp Pulse Resp BP Pulse Ox 36.9 C 61 14 170/62 H 91 L 03/12/17 07:40 03/12/17 07:40 03/12/17 07:40 03/12/17 08:00 03/12/17 07:40 Laboratory Results 03/09/17 05:56 03/12/17 06:14 03/11/17 03/12/17 03/13/17 05:59 05:59 05:59 Intake Total 620.5 235.5 Output Total 200 Balance 620.5 35.5 PT 13.4 SEC (12.0-15.0) 03/05/17 22:00 INR 1.00 (0.83-1.16) 03/05/17 22:00 ICD10 Worksheet Patient Problems: Problems Problem Status Onset Small bowel obstruction, partial Acute
[2017-03-13] MEDS ORDERED: LEVOTHYROXINE 137 MCG TAB PO SCH (06:00)
[2017-03-13] MEDS ORDERED: LEVOTHYROXINE 88 MCG TAB PO SCH (06:00)
[2017-03-13 07:37] VITALS: BP 164/72; PULSE 62; RESP 14; TEMP 98.7; O2SAT 92
[2017-03-13] MEDS ORDERED: POTASSIUM CL 10 MEQ TAB PO ONE (08:11)
--- NOTE | 2017-03-13 11:25 | HOSPPROG ---
Hospitalist Progress Note Assessment/Plan: Patient is an 81-year-old female whose had prior abdominal surgeries. She presented to the emergency room with abdominal pain nausea and vomiting. In the emergency department she had a CT scan that was notable for partial small bowel obstruction with transition point in the pelvis. She had surgery with Dr. Javier. *Partial SBO -status post lysis of adhesions and bowel section on March 08 -feeling well today *hypokalemia -better -k protocol *Hyponatremia -needs more solute intake,will have this checked at home * hypoalbuminemia -due to poor intake * hypertension -BP elevated during her stay -low dose Norvasc * anemia -labs stable today * DVT prophylaxis -athrombic pumps, ambulating frequently *Plan: dc home Subjective: patient is feeling much better today and anxious to go home Objective: Vital Signs Temp Pulse Resp BP Pulse Ox 37.1 C 62 14 164/72 H 92 03/13/17 07:33 03/13/17 07:33 03/13/17 07:33 03/13/17 07:33 03/13/17 07:33 Laboratory Results 03/09/17 05:56 03/13/17 05:07 03/12/17 03/13/17 03/14/17 05:59 05:59 05:59 Intake Total 235.5 500 Output Total 200 Balance 35.5 500 PT 13.4 SEC (12.0-15.0) 03/05/17 22:00 INR 1.00 (0.83-1.16) 03/05/17 22:00 - Physical Exam Constitutional: no apparent distress, appears nourished, not in pain Eyes: PERRL Ears, Nose, Mouth, Throat: hearing normal Cardiovascular: regular rate and rhythym Respiratory: no respiratory distress Gastrointestinal: normoactive bowel sounds, soft, non-tender abdomen Skin: warm Musculoskeletal: full muscle strength Neurologic: AAOx3 Psychiatric: interacting appropriately ICD10 Worksheet Patient Problems: Problems Problem Status Onset Small bowel obstruction, partial Acute
[2017-03-13] MEDS: SENNOSIDES/DOCUSATE SODIUM TAB PO SCH (11:31)
--- NOTE | 2017-03-13 11:31 | PDIAF ---
- Diagnosis Diagnosis: SBO, htn, hyponatremia Code Status: Full Code - Medication Management Discharge Medications: Medications to Continue on Transfer Cholecalciferol Vit D3 [Vitamin D3 (*)] 1,000 units PO DAILY 03/06/17 [Last Taken 03/05/17] Herbals/Supplements -Info Only 1 ea PO DAILY 03/06/17 [Last Taken 03/05/17] Acetaminophen [Tylenol 325mg (*)] 650 mg PO Q4HRS PRN tab 03/13/17 [Last Taken Unknown] Levothyroxine [Synthroid 88 mcg (*)] 88 mcg PO DAILY06 tab 03/13/17 [Last Taken Unknown] Polyethylene Glycol 3350 [Miralax 17 gm (*)] 17 gm PO DAILY PRN pkt 03/13/17 [ Last Taken Unknown] amLODIPine BESYLATE [Norvasc 2.5 mg (*)] 5 mg PO DAILY #60 tab 03/13/17 [Last Taken Unknown] Discharge Medications: Refer to the Discharge Home Medication list for PRN reason. - Orders Services needed: Home Care, Registered Nurse, Physical Therapy, Occupational Therapy Home Care Face to Face: I certify that this patient was under my care and that I had the required [id number] encounter meeting the encounter requirements on the discharge day. My findings support the fact that the patient is homebound as defined in Home Care Face to Face Continued: CMS Chapter 7 Medicare Benefits Manual 30.1.1 , The condition of the patient is such that there exists a normal inability to leave home and consequently, leaving home would require a considerable and taxing effort. Diet Recommendation: no restrictions on diet Additional: Check patient's blood pressure daily. She has been started on a new medication to help with this. Also please check her oxygen levels well at home. - Labs/Radiology BMP Date: 03/19/16 Call or Fax Lab and Imaging Results to: Lab results called to primary care provider - Follow Up Care Current Providers and Referrals: NIKITA SERRANO [Other] Keegan Javier MD [Medical Doctor] -
--- NOTE | 2017-03-13 11:40 | ASMTCMCOM ---
CM Note CM Note Notes: Patient medically stable to discharge to home with HHC. Final orders via allscript to [facility]. CM available should other needs arise. Date Signed: 03/13/2017 11:39 AM Electronically Signed By:Joyce Dang RN
--- NOTE | 2017-03-13 12:21 | GDS ---
[f rep st] DISCHARGE SUMMARY DISCHARGE DIAGNOSES: 1. Small-bowel obstruction status post lysis of adhesions. 2. Hypokalemia. 3. Hyponatremia. 4. Hypoalbuminemia. 5. Hypertension. 6. Anemia. CONSULTATION: Dr. Keegan Javier. HISTORY: Briefly, the patient is an 81-year-old female who has had prior abdominal surgery. She pre sented to the emergency room with abdominal pain, nausea and vomiting. She had a CT scan that was no table for small bowel obstruction with transition point in the pelvis. She had surgery with Dr. Marcus Javier. Her postop care was complicated by some nausea and poor appetite and low sodium and potassi um levels. Today, she is markedly better. She will further follow up with Dr. Javier in the outpatient setting. HOSPITAL COURSE: 1. Partial small bowel obstruction. She is status post lysis of adhesions and bowel resection on Ja nuary 9. She is doing quite well. Further follow up with Dr. Javier. 2. Hypokalemia, much improved with increasing oral intake. 3. Hyponatremia. We will have her labs checked in a week. 4. Hypoalbuminemia. This is due to poor intake. 5. Hypertension. Her blood pressure has been elevated during her stay. She has been started on Nor vasc. Further follow up with her PCP. 6. Anemia, stable. DISCHARGE CONDITION: Stable. Blood pressure is 164/72, heart rate 62, respiratory rate is 14, O2 sa turation on room air 92%, temperature is 37.1 Celsius. MEDICATIONS AT DISCHARGE: Please see the EMR. DISCHARGE INSTRUCTIONS: 1. Further follow up with Dr. Javier. 2. Follow up with her primary care provider. 3. Amlodipine is a new medication for her. TIME SPENT: Greater than 30 minutes discharging and coordinating the patient's care. Copy requested to: Monica Rosales /[id number]/MODL
--- NOTE | 2017-03-13 17:02 | ASDISCHSUM ---
Discharge Information Plan Status:Home with Home Health Medically Cleared to Leave:03/12/2017 Discharge Date:03/13/2017 12:04 PM CM D/C Disposition:Home, Routine, Self-Care ADT D/C Disposition:[id number] Projected Discharge Date:03/13/2017 11:00 AM Transportation at D/C:Family Discharge Delay Reason: Follow-Up Date:03/13/2017 11:00 AM Discharge Slot: Final Diagnosis: Placement Information Referral Type:*Home Health Care Services Referral ID:[id number] Provider Name:[facility] Address 1:[address] Address 2: City:[place] Selection Factors: State:[place] Patient Contact Information Contact Name:GERMAN Relationship: Address:[address] [place] [address] Work Phone: City:[place] Alternate Phone: State/Zip Code:[place] [address] Email: Financial Information Financial Class:Medicare Advantage Plans Primary Plan Desc:[employer] ADV IP Primary Plan Number:[id number] Secondary Plan Desc: Secondary Plan Number: Assessment Information [facility] CM Progress Note CM Note CM Note Notes: Reviewed chart. Pt admitted w/partial SBO. She and her live at home independantly. Anticipate that she will dc home independantly when medically stable but CM will follow in case dc needs arise. Date Signed: 03/06/2017 11:31 AM Electronically Signed By:Dinah Obregon RN [facility] CM Progress Note CM Note CM Note Notes: Pt cleared by PT for home when medically stable. Per RN, pt has significant family assistance and was independent prior to admission. CM available for any changes. DC Plan: Home w/family Date Signed: 03/09/2017 11:11 AM Electronically Signed By:Joleen Foley RN [facility] CM Progress Note CM Note CM Note Notes: Chart reviewed.Met with patient and her Per therapies HHC recommended. patient is weak and they are agreeable to [facility]. They have gregory so referral to [facility], confirmed address and phone number. Awaiting response. CM to follow. Date Signed: 03/11/2017 12:01 PM Electronically Signed By:Joyce Dang RN [facility] CM Progress Note CM Note CM Note Notes: Patient medically stable to discharge to home with [facility]. Final orders via allscript to [facility]. CM available should other needs arise. Date Signed: 03/13/2017 11:39 AM Electronically Signed By:Joyce Dang RN Intervention Information Intervention Type:*IM-Signed Date of Service:03/11/2017 03:59 PM Patient Type:Inpatient Staff Member:Trish Diaz Hours: Discipline: Severity: Comment:
== END 2017-03-13 12:04 | disposition home health service (06) | DRG 329 ==
LOC: INTOOBSV 23:41 → F3E 03-06 00:52 → OBSVTOIN 03-06 14:54
PROVIDERS: ADMIT Student in an Organized Health Care Education/Training Program; ATTEND Internal Medicine Pulmonary Disease
PROC: 0D9670Z Drainage of Stomach with Drainage Device, Via Natural or Artificial Opening (ICD-10-PCS; 2017-03-06)
PROC: 0DBB0ZZ Excision of Ileum, Open Approach (ICD-10-PCS; principal; 2017-03-08 15:15)
PROC: 0DNB4ZZ Release Ileum, Percutaneous Endoscopic Approach (ICD-10-PCS; principal; 2017-03-08 15:15)
PROC: 0DQB0ZZ Repair Ileum, Open Approach (ICD-10-PCS; principal; 2017-03-08 15:15)
DX: K56.51 Intestinal adhesions [bands], with partial obstruction (principal); K63.1 Perforation of intestine (nontraumatic); K55.059 Acute (reversible) ischemia of intestine, part and extent unspecified; E87.1 Hypo-osmolality and hyponatremia; E87.6 Hypokalemia; I10 Essential (primary) hypertension; D64.9 Anemia, unspecified
CPT/HCPCS: 96374; 97116-GP; 97161-GP; 97164-GP; 97166-GO; 97530-GO; 97530-GP; 97535-GO; J0171; J0360; J0690; J0697; J1170; J1885; J2405; J2704; J3010; Q9967